=== PATIENT | female | born 2000 | race Caucasian/White ===

== ENCOUNTER 2019-02-09 | Inpatient (IN) | payer OTHER ==
[2019-02-09 00:50] LABS: BASO % 0.3 % (0-2.0); EOS % 0.1 % (0-4.5); HEMATOCRIT 39.3 % (32.4-45.2); HEMOGLOBIN 13.6 GM/dL (10.7-15.3); LYMPH % 20.3 % (8-40); MCHC 34.6 g/dl (32.0-36.0); MEAN CELL VOLUME 83.6 fl (80-96); MEAN PLT VOLUME 10.8 fl (7.5-11.1); NEUT % 74.3 % (42.8-82.8); PLATELET COUNT 196 K/MM3 (134-434); RDW 13.8 % (11.6-15.6); WHITE BLOOD COUNT 10.1 K/mm3 (4.0-10.0)
[2019-02-09 01:07] LABS: INR 0.97 (0.83-1.09); PROTHROMBIN TIME (PATIENT) 11.5 SEC (9.7-13.0)
[2019-02-09 01:10] LABS: ACTIVATED PTT 28.2 SECONDS (25.2-36.5)
[2019-02-09 01:11] LABS: BLOOD UREA NITROGEN 5.8 mg/dL (7-18); CALCIUM 9.5 mg/dL (8.5-10.1); CREATININE 0.4 mg/dL (0.55-1.3); POTASSIUM 3.9 mmol/L (3.5-5.1)
[2019-02-09] MEDS ORDERED: DEXTROSE 5%-LACTATED RINGERS 500 ML IV ONE ×2 (03:00→04:00)
[2019-02-09] MEDS ORDERED: BUTORPHANOL TARTRATE 1 MG/ML VIAL IVPB ONE (04:21)
[2019-02-09] MEDS ORDERED: PROMETHAZINE HCL 25 MG/1 ML VIAL IVPUSH ONE (04:21)
--- NOTE | 2019-02-09 04:27 | HP ---
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: No: Alzheimer's, CVA, Dementia, Migraine, Multiple Sclerosis, Peripheral Neuropathy, Parkinson's, Seizure, Syncope, TIA, Vertigo, Other Cardiovascular: No: AFIB, Aneurysm, Aortic Insufficiency, Aortic Stenosis, CAD, CHF, Deep Vein Thrombosis, HTN, Hyperlipdemia, NH, Mitral Insufficiency, Mitral Stenosis, Murmur, Pulmonary Hypertension, Other Pulmonary: No: Asthma, Bronchitis, Cancer, COPD, O2 Dependent, Pneumonia, Previously Intubated, Pulmonary Embolus, Pulmonary Fibrosis, Sleep Apnea, Other Gastrointestinal: No: Ascites, Cancer, Constipation, Crohn's Disease, Diverticulitis, Diverticulosis, Esophageal Varices, Gastritis, GERD, GI Bleed, Hemorrhoids, Hiatal Hernia, Inflamatory Bowel Disease, Irritable Bowel Disease, Pancreatitis, Peptic Ulcer Disease, Ulcerative Colitis, Other Hepatobiliary: No: Cirrhosis, Cholelithiasis, Cholecystitis, Choledocholithiasis , Hepatitis A, Hepatitis B, Hepatitis C, Other Renal/: No: Renal Failure, Renal Inusuff, BPH, Cancer, Hematuria, Hemodialysis , Neurogenic Bladder, Renal Calculi, UTI, Other ...: 1 ...Para: 0 ...Term: 0 ...: 0 ...Spon : 0 ...Induced : 0 ...LMP: 06/08/18 ...EDC by Sono: 02/13/19 Heme/Onc: No: Anemia, B12 Deficiency, Bleeding Disorder, Cancer, Current Chemotherapy, Current Radiation Therapy, Hemochromatosis, Hypercoaguable State, Myeloproliferative Synd, Sickle Cell Disease, Sickle Cell Trait, Thrombocytopenia, Other Psych: No: Addictions, Anxiety, Bipolar, Depression, Panic, Psychosis, Schizophrenia, Other Musculoskeletal: No: Bursitis, Chronic low back pain, Hemiparesis, Hemiplegia, Osteoarthritis, Paraplegia, Other - Past Surgical History Past Surgical History: Yes: None Hx Myomectomy: No Hx Transabdominal Cerclage: No - Smoking History Smoking history: Never smoked - Alcohol/Substance Use Hx Alcohol Use: No History of Substance Use: reports: None - Social History Do you think of yourself as: Straight/Heterosexual ADL: Independent History of Recent Travel: No Home Medications - Allergies Allergies/Adverse Reactions: Allergies Allergy/AdvReac Type Severity Reaction Status Date / Time No Known Allergies Allergy Verified 02/09/19 00:41 - Home Medications Home Medications: Ambulatory Orders Ferrous Sulfate [Iron] 325 mg PO DAILY 02/08/19 Pnv No.95/Ferrous Fum/Folic AC [ Formula] 1 each PO DAILY 02/08/19 Physical Exam - Maternity Vital Signs: Vital Signs Temperature 98.7 F 02/09/19 02:00 Pulse Rate 85 02/09/19 02:00 Respiratory Rate 20 02/09/19 02:00 Blood Pressure 111/72 02/09/19 02:00 O2 Sat by Pulse Oximetry (%) Constitutional: Yes: Well Nourished, No Distress, Calm - Abdominal Exam/OB Number of Fetuses: Single Presentation: Vertex Contractions: Yes Regularity: Irregular Intensity: Mild/Mod Monitor Mode: External Accelerations: Non-Uniform Decelerations: Late - Vaginal Exam/OB Vaginal Bleediing: No Speculum Exam: No Dilatation (cm): 5 Amniotic Membrane Status: Ruptured Nitrazine Test: Positive Amniotic Fluid: Yes: Clear Presentation: Vertex/Position Station: -3 - Labs Lab Results: CBC, BMP 02/09/19 00:30 02/09/19 00:30 Assessment/Plan 18yo @ 39.2 weeks here with contractions and then SROM 12AM Admit to L&D NPO Stadol/epidural Continuous EFM Anticipate Kenneth Espinoza MD
[2019-02-09] MEDS ORDERED: DEXTROSE 5%-LACTATED RINGERS 1,000 ML IV SCH (04:30)
[2019-02-09] MEDS ORDERED: ELECTROLYTE-148 SOLN 1,000 ML IV SCH (04:30)
[2019-02-09 04:31] VITALS: BMI 23.4
--- NOTE | 2019-02-09 06:47 | PN ---
Progress Note, Labor Vaginal Exam #1 Labor Exam Date: 02/09/19 Heart Rate (range): Cat I Dilatation: 5 Effacement (%): 90 Amniotic Membrane Status: Ruptured Presentation: Vertex/Position Station: -2 Remarks: Doing well. No significant cervical change. Comfortable s/p stadol Contractions infrequent now Start pitocin Anticipate JOSE M Espinoza MD
[2019-02-09] MEDS ORDERED: OXYTOCIN 30 UNITS in 0.9% NS 30 UNIT/500 ML INFUS.BAG IVPB SCH ×2 (07:00→07:15)
[2019-02-09] MEDS ORDERED: OXYTOCIN 30 UNITS in 0.9% NS 30 UNIT/500 ML INFUS.BAG IVPB ONE (07:50)
[2019-02-09 09:10] LABS: POC NITRAZINE NEG
[2019-02-09] MEDS ORDERED: FENTANYL/BUPIVACAINE/NS/PF - PCEA - 50 ML DISP.SYRIN EP ONE (09:41)
--- NOTE | 2019-02-09 10:16 | PN ---
Progress Note (short form) - Note Progress Note: 18 yrs 39.2 weeks , admitted in labor due to srom since mid night by Dr Espinoza .Onset LP since Chart reviewed . GBS neg she received stadol 2 mg + phenrgan 25 mg at 4.40 AM Pitocin was started at 7.00AM & d/myra at 8.15 AM due to cat -2 tracing o/e 9.25 AM FHR 155-110, cat-2 , uc 3 min vag ex : 5cm edematous cx, vx 0/+1 station Plan epidural Selected Entries 02/09/19 08:00 Temperature 98.9 F Pulse Rate 82 Blood Pressure 112/80 Laboratory Tests 02/09/19 02/09/19 02/09/19 00:30 00:30 00:30 WBC 10.1 H Hgb 13.6 Hct 39.3 Plt Count 196 PT with INR 11.50 INR 0.97 PTT (Actin FS) 28.2 Sodium 138 Potassium 3.9 Chloride 104 Carbon Dioxide 24 BUN 5.8 L Creatinine 0.4 L Est GFR (CKD-EPI)AfAm 173.78 Est GFR (CKD-EPI)NonAf 149.94 Random Glucose 81 Calcium 9.5 Laboratory Tests 02/09/19 06:50 Blood Type B POSITIVE 10.30 AM : epidural completed at 10.05 AM fhr still shows variable decel 120-150 bpm , UC / 2-3 min vag ex 5-6 /edematous /vx 0/+[address] trial odf labor 11.40 AM : deep variable decels down to 70-80 bpm , base line 150-160 , cat-2 uc q2-3 min strong epidural labor analgesia ineffective pelvic : 6 cm edematous cx , vx 0 station, caput Plan : delivery by primary lftc/s Selected Entries 02/09/19 11:30 Pulse Rate 87 Blood Pressure 141/89 10.00AM temp 99.1 11.45 AM Temp 99.4
[2019-02-09] MEDS ORDERED: NALOXONE HCL 0.4 MG/ML VIAL IVPUSH PRN (10:24)
[2019-02-09] MEDS ORDERED: FENTANYL/BUPIVACAINE/NS/PF - PCEA - 50 ML DISP.SYRIN EP SCH ×2 (10:30→11:00)
[2019-02-09] MEDS ORDERED: CITRIC ACID/SODIUM CITRATE 30 ML UNIT-DOSE CUP PO ONE (11:32)
[2019-02-09] MEDS ORDERED: ONDANSETRON 4 MG/2 ML VIAL IVPUSH PRN (12:23)
[2019-02-09] MEDS ORDERED: morphine SULFATE/PF 0.5 MG/ML (2cc Syringe - QUVA) SPIN ONE (12:23)
[2019-02-09] MEDS ORDERED: OXYTOCIN 20 UNITS in 0.9% NS 20 UNIT/1,000 ML INFUS.BAG IV ONE ×2 (12:35→15:22)
[2019-02-09] MEDS ORDERED: ePHEDrine SULFATE 50 MG/1 ML AMPULE ONE (12:39)
[2019-02-09] MEDS ORDERED: MIDAZOLAM HCL 2 MG/2 ML SINGLE DOSE VIAL ONE (13:23)
[2019-02-09] MEDS ORDERED: IBUPROFEN 600 MG TABLET (FP) PO PRN (13:52)
[2019-02-09] MEDS ORDERED: SENNOSIDES/DOCUSATE COMBO (SENNA PLUS) TABLET (UD) PO PRN (13:52)
[2019-02-09] MEDS ORDERED: ACETAMINOPHEN 325 MG TABLET (FP) PO PRN (13:52)
[2019-02-09] MEDS ORDERED: METHYLERGONOVINE MALEATE 0.2 MG/1 ML AMP IM PRN (13:52)
--- NOTE | 2019-02-09 14:06 | OP ---
Operative Note - Note: Operative Date: 02/09/19 Pre-Operative Diagnosis: 39.2 weeks, Non Reassuring FHR, FTP Operation: Primary LFTC/Section Findings: 1 .01 PM , baby Girl, Vx, OP position , apgar9/9, wt 5'12" , Both tubes & ovaries normal Dr Palma in OR Surgeon: Renay Wiley Salvage Engineer: Gregor Vasques Anesthesiologist/CHECK OUT CASHIER: Lesa Matta MD Anesthesia: Spinal Specimens Removed: cord segment for cord gas. cord blood. placenta Estimated Blood Loss (mls): 700 Drains, Volume Out (mls): 450 (hendricks output shakeel color ) Fluid Volume Replaced (mls): 900 (ancef 2 gm ivpb )
--- NOTE | 2019-02-09 14:20 | PN ---
Delivery - Delivery Section: Primary, Low Flap Transverse (Indication 39.2 weeks, NonReassuring Fhr, FTP) Type of Anesthesia: Epidural, Spinal EBL (cc): 700 (hendricks output 450 ml shakeel color ) Delivery, Single - Stages of Labor Date 1st Stage Initiatied: 02/08/19 Time 1st Stage Initiated: 23:00 Date of Delivery: 02/09/19 Time of Delivery: 13:01 Time Placenta Delivered: 13:02 Placenta: Yes: Manual Removal, Uterine Exploration - Condition of Quality Control Lab Technician/Diamond Assorter Present: Yes Name: Juan Kowalski Gender: Female Weight: 5 lb 12 oz Position: OP Total Hours ROM (Hrs/Mins): 9 hours 22 minutes - 1 Minute Total Score: 9 5 Minutes Total Score: 9 - Feeding Plan Initial Plan: Elected not to breastfeed exclusively throughout hospitalization Remarks - Remarks Remarks: 18 yrs , 39.2 weeks, gbs neg pnc at 2, [facility] pt received stadol + phenrgan & epidural for labor analgesia intraop course uneventful
[2019-02-09] MEDS: ELECTROLYTE-148 SOLN 1,000 ML IV SCH (15:01)
[2019-02-09] MEDS ORDERED: OXYTOCIN 10 UNITS/ML VIAL ONE (15:03)
--- NOTE | 2019-02-09 16:21 | OP ---
DATE OF OPERATION: 02/09/2019 PREOPERATIVE DIAGNOSIS: 39.2 weeks, nonreasurring heart rate, and failure to progress. OPERATION: Primary low flap transverse section. SURGEON: Renay Wiley MD KENNEL STAFF MEMBER SURGEON: JARROD Price ANESTHESIOLOGIST: Lesa Matta MD THREADING MACHINE SETTER: Minerva Martinez ANESTHESIA: Spinal. FINDINGS: This 18-year-old 1, para 0 admitted in labor. She had a rupture of membranes for 9 hours. She was having deep variable decelerations going to 70-80 beats per minute. She had no pain relief after the epidural also. She was dilated 6 cm for more than 3 hours, and cervix had become edematous. It was decided to deliver the patient by section. Direct OP position is noted during the section. Baby girl. Apgars were 9, 9, weight was 5 pounds 12 ounces. DESCRIPTION OF PROCEDURE: Abdomen was shaved, prepped. Gusman catheter was placed already. Epidural catheter was removed. SCD stockings put in place. Patient was taken to the operating room table. Spinal anesthesia was given. Patient was placed in supine position. Abdomen was painted and draped in the usual manner. Pfannenstiel incision was made in skin and subcutaneous tissue. Anterior rectus sheath was incised transversely. Bleeding points were clamped and cauterized. Rectus muscle was from the rectus sheath. Parietal peritoneum was opened vertically. Lower flap bladder peritoneum was incised transversely. Lower uterine segment was incised transversely. Amniotic was clear. Baby was delivered from OP position at 1:01 PM, baby girl. Apgars were 9, 9. Cord was clamped, and cord segment was sent for the cord blood gas, and cord blood was collected. Placenta was removed completely with the membranes. Uterine incision was closed in 2 layers, 1st layer was a continuous locking with a Biosyn single suture, 2nd layer was a continuous, intermittent locking with a Biosyn single suture. Hemostasis was checked. Uterine incision then bladder peritoneum was closed with Biosyn single suture. Both tubes and ovaries were normal. Irrigation was done, and the sponge, instrument, needle count was correct. Closure of the abdomen was done. Parietal peritoneum was closed with a Vicryl 0 suture. Muscles were approximated together with a Vicryl 0 suture with intermittent sutures. Anterior rectus sheath was closed with a Vicryl 0 continuous suture. Before closure of the anterior rectus sheath underneath the flaps, hemostasis was checked. Subcutaneous tissue hemostasis was checked. Intermittent sutures were taken to subcutaneous tissue. Skin was approximated with zenobia, and pressure dressing was given. Blood clots were removed from the vagina. Patient tolerated procedure well and were transferred to the recovery room in stable condition. Estimated blood loss was 700 mL. Intraoperative urine output was 450 mL, and she received 2 g of IV Ancef prior to the incision. She has an IV solution, about 900 mL received. Promise [id number] MTDD
[2019-02-09] MEDS: IBUPROFEN 800 MG/8 ML IJ IVPB PRN (17:40)
[2019-02-09] MEDS ORDERED: CEFAZOLIN 1 GM in DEXTROSE 5%-WATER - 50 ML IVPB SCH (18:00)
[2019-02-09] MEDS ORDERED: CEFAZOLIN 1 GM/D5W 1 GM/50 ML BAG IVPB SCH (18:38)
[2019-02-09] MEDS: CEFAZOLIN 1 GM/D5W 1 GM/50 ML BAG IVPB SCH (18:49)
[2019-02-10] MEDS: IBUPROFEN 800 MG/8 ML IJ IVPB PRN ×3 (00:28→14:45)
[2019-02-10] MEDS: CEFAZOLIN 1 GM/D5W 1 GM/50 ML BAG IVPB SCH ×3 (02:31→17:15)
[2019-02-10] MEDS ORDERED: oxyCODONE HCL 5 MG TABLET PO PRN (06:00)
--- NOTE | 2019-02-10 07:09 | PN ---
Progress Note (short form) - Note Progress Note: pod 1 s/p c/s has mild low abdominal cramps CBC, BMP 02/09/19 00:30 02/09/19 00:30 Last Vital Signs Temp Pulse Resp BP Pulse Ox 97.5 F L 81 20 103/51 L 99 02/10/19 06:00 02/10/19 06:00 02/10/19 06:00 02/10/19 06:00 02/09/19 14:35 abdomen soft, no distension, no cva uterus firm lochia mild no calf tenderness plan ambulate, cbc advance diet pain management
[2019-02-10 07:55] LABS: BASO % 0.2 % (0-2.0); EOS % 0.1 % (0-4.5); HEMATOCRIT 34.6 % (32.4-45.2); HEMOGLOBIN 11.8 GM/dL (10.7-15.3); LYMPH % 13.6 % (8-40); MCH 29.2 pg (25.7-33.7); MCHC 34.3 g/dl (32.0-36.0); MEAN CELL VOLUME 85.3 fl (80-96); MEAN PLT VOLUME 10.3 fl (7.5-11.1); MONO % 6.1 % (3.8-10.2); PLATELET COUNT 165 K/MM3 (134-434); RBC 4.05 M/mm3 (3.60-5.2); WHITE BLOOD COUNT 17.1 K/mm3 (4.0-10.0)
[2019-02-10] MEDS ORDERED: ENOXAPARIN NA (PORCINE) 40 MG/0.4 ML DISP.SYRIN SQ SCH (10:00)
--- NOTE | 2019-02-10 10:00 | PN ---
Progress Note (short form) - Note Progress Note: Post op day#1.S/P C Section under spinal anesthesia with duramorph uneventful.Patient stable and has little pain for which she is on medication.No any anesthesia related problem.Patient DC from the anesthesia care.
[2019-02-10] MEDS: PRENATAL VITAMINS W/ FOLIC ACID TABLET (FP) PO SCH (10:05)
[2019-02-10] MEDS ORDERED: BISACODYL 10 MG SUPP.RECT RC PRN (13:52)
[2019-02-10] MEDS: IBUPROFEN 100 MG/5 ML UNIT DOSE CUPS PO PRN ×2 (15:38→23:34)
[2019-02-10] MEDS: ACETAMINOPHEN 650 MG/20.3 ML ORAL SOLUTION (CUPS) PO PRN ×2 (15:38→23:34)
[2019-02-10] MEDS: SIMETHICONE 80 MG TAB.CHEW (FP) PO PRN (15:39)
[2019-02-10] MEDS: FERROUS SO4 325 MG TABLET (FP) PO SCH (21:22)
[2019-02-11] MEDS: CEFAZOLIN 1 GM/D5W 1 GM/50 ML BAG IVPB SCH (04:16)
--- NOTE | 2019-02-11 06:31 | PN ---
Post Progress Note - Subjective Subjective: c/o pain less today, 2-4/10 yesterday max pain 8/10 voiding without difficulty Post Day: 2 Type of Delivery: Primary C/S Vital Signs: Vital Signs Temperature 97.1 F L 02/10/19 21:21 Pulse Rate 78 02/10/19 21:21 Respiratory Rate 18 02/10/19 21:21 Blood Pressure 104/50 L 02/10/19 21:21 O2 Sat by Pulse Oximetry (%) 99 02/09/19 14:35 Breast Exam: Yes: Soft, Other (BF & bottle feeding ). No: Engorged Uterus: Yes: Fundus Firm, Fundus below umbilicus Abdomen/GI: Yes: Abdomen soft, Passing flatus, Tolerating PO (diet ). No: Abdominal Distention, Tender Lochia: Yes: Rubra Lochia, amount: Moderate Extremities: Yes: Calves non-tender Perineum: Yes: Intact Activity: Ambulating - Labs Labs: CBC WBC 17.1 K/mm3 (4.0-10.0) H 02/10/19 07:17 RBC 4.05 M/mm3 (3.60-5.2) 02/10/19 07:17 Hgb 11.8 GM/dL (10.7-15.3) 02/10/19 07:17 Hct 34.6 % (32.4-45.2) 02/10/19 07:17 MCV 85.3 fl (80-96) 02/10/19 07:17 MCH 29.2 pg (25.7-33.7) 02/10/19 07:17 MCHC 34.3 g/dl (32.0-36.0) 02/10/19 07:17 RDW 14.0 % (11.6-15.6) 02/10/19 07:17 Plt Count 165 K/MM3 (134-434) 02/10/19 07:17 MPV 10.3 fl (7.5-11.1) 02/10/19 07:17 Absolute Neuts (auto) 13.6 K/mm3 (1.5-8.0) H 02/10/19 07:17 Neutrophils % 80.0 % (42.8-82.8) 02/10/19 07:17 Lymphocytes % 13.6 % (8-40) D 02/10/19 07:17 Monocytes % 6.1 % (3.8-10.2) 02/10/19 07:17 Eosinophils % 0.1 % (0-4.5) 02/10/19 07:17 Basophils % 0.2 % (0-2.0) 02/10/19 07:17 Nucleated RBC % 0 % (0-0) 02/10/19 07:17 Problem List - Problems (1) with 39 completed weeks gestation Code(s): Z3A.39 - 39 WEEKS GESTATION OF (2) Failure to progress in labor Code(s): O62.2 - OTHER UTERINE INERTIA (3) Non-reassuring heart rate, delivered, current hospitalization Code(s): O76 - ABNLT IN HEART RATE AND RHYTHM COMP LABOR AND DELIVERY (4) delivery due to maternal disorder, delivered, current hospitalization Code(s): O99.89 - OTH DISEASES AND CONDITIONS COMPL PREG/CHLDBRTH (5) Status post section routine follow-up Code(s): Z39.2 - ENCOUNTER FOR ROUTINE FOLLOW-UP; Z98.891 - HISTORY OF UTERINE SCAR FROM PREVIOUS SURGERY Assessment/Plan plan ct po care encourage po fluids, ambulation , deep breathing ex
[2019-02-11] MEDS: FERROUS SO4 325 MG TABLET (FP) PO SCH ×3 (08:05→17:32)
[2019-02-11] MEDS: ACETAMINOPHEN 650 MG/20.3 ML ORAL SOLUTION (CUPS) PO PRN ×3 (08:09→17:32)
[2019-02-11] MEDS: IBUPROFEN 100 MG/5 ML UNIT DOSE CUPS PO PRN ×3 (08:38→17:33)
[2019-02-11] MEDS: PRENATAL VITAMINS W/ FOLIC ACID TABLET (FP) PO SCH ×2 (10:00)
[2019-02-11] MEDS: ELECTROLYTE-148 SOLN 1,000 ML IV SCH (13:47)
[2019-02-12] MEDS: IBUPROFEN 100 MG/5 ML UNIT DOSE CUPS PO PRN ×3 (00:02→20:48)
[2019-02-12] MEDS: ACETAMINOPHEN 650 MG/20.3 ML ORAL SOLUTION (CUPS) PO PRN ×3 (00:03→20:48)
[2019-02-12] MEDS: SIMETHICONE 80 MG TAB.CHEW (FP) PO PRN ×3 (00:04→20:48)
[2019-02-12] MEDS: FERROUS SO4 325 MG TABLET (FP) PO SCH (08:08)
[2019-02-12 08:09] LABS: BASO % 0.2 % (0-2.0); EOS % 1.1 % (0-4.5); HEMATOCRIT 32.5 % (32.4-45.2); HEMOGLOBIN 10.9 GM/dL (10.7-15.3); LYMPH % 36.6 % (8-40); MCH 28.6 pg (25.7-33.7); MCHC 33.6 g/dl (32.0-36.0); MEAN CELL VOLUME 85.1 fl (80-96); MEAN PLT VOLUME 9.9 fl (7.5-11.1); MONO % 7.4 % (3.8-10.2); NEUT % 54.7 % (42.8-82.8); PLATELET COUNT 202 K/MM3 (134-434); RBC 3.82 M/mm3 (3.60-5.2); RDW 13.9 % (11.6-15.6); WHITE BLOOD COUNT 7.3 K/mm3 (4.0-10.0)
--- NOTE | 2019-02-12 08:24 | PN ---
Post Progress Note - Subjective Subjective: no c/o pain scale 06/26 Post Day: 3 Type of Delivery: Primary C/S Vital Signs: Vital Signs Temperature 98.2 F 02/11/19 09:29 Pulse Rate 72 02/11/19 09:29 Respiratory Rate 18 02/11/19 09:29 Blood Pressure 111/72 02/11/19 09:29 O2 Sat by Pulse Oximetry (%) 99 02/09/19 14:35 Breast Exam: Yes: Soft, Other (BF). No: Engorged Uterus: Yes: Fundus Firm, Fundus below umbilicus, Non-tender Incision: Yes: [place] intact. No: Redness, Oozing Abdomen/GI: Yes: Abdomen soft, Passing flatus (BM done ), Tolerating PO (diet). No: Abdominal Distention, Tender Lochia: Yes: Rubra Lochia, amount: Moderate Extremities: Yes: Calves non-tender Perineum: Yes: Intact Activity: Ambulating - Labs Labs: CBC WBC 17.1 K/mm3 (4.0-10.0) H 02/10/19 07:17 RBC 4.05 M/mm3 (3.60-5.2) 02/10/19 07:17 Hgb 11.8 GM/dL (10.7-15.3) 02/10/19 07:17 Hct 34.6 % (32.4-45.2) 02/10/19 07:17 MCV 85.3 fl (80-96) 02/10/19 07:17 MCH 29.2 pg (25.7-33.7) 02/10/19 07:17 MCHC 34.3 g/dl (32.0-36.0) 02/10/19 07:17 RDW 14.0 % (11.6-15.6) 02/10/19 07:17 Plt Count 165 K/MM3 (134-434) 02/10/19 07:17 MPV 10.3 fl (7.5-11.1) 02/10/19 07:17 Absolute Neuts (auto) 13.6 K/mm3 (1.5-8.0) H 02/10/19 07:17 Neutrophils % 80.0 % (42.8-82.8) 02/10/19 07:17 Lymphocytes % 13.6 % (8-40) D 02/10/19 07:17 Monocytes % 6.1 % (3.8-10.2) 02/10/19 07:17 Eosinophils % 0.1 % (0-4.5) 02/10/19 07:17 Basophils % 0.2 % (0-2.0) 02/10/19 07:17 Nucleated RBC % 0 % (0-0) 02/10/19 07:17 Problem List - Problems (1) with 39 completed weeks gestation Code(s): Z3A.39 - 39 WEEKS GESTATION OF (2) Failure to progress in labor Code(s): O62.2 - OTHER UTERINE INERTIA (3) Non-reassuring heart rate, delivered, current hospitalization Code(s): O76 - ABNLT IN HEART RATE AND RHYTHM COMP LABOR AND DELIVERY (4) delivery due to maternal disorder, delivered, current hospitalization Code(s): O99.89 - OTH DISEASES AND CONDITIONS COMPL PREG/CHLDBRTH (5) Status post section routine follow-up Code(s): Z39.2 - ENCOUNTER FOR ROUTINE FOLLOW-UP; Z98.891 - HISTORY OF UTERINE SCAR FROM PREVIOUS SURGERY Assessment/Plan stable plan ct po care discharge tomorrow.
[2019-02-12] MEDS: FERROUS SO4 300 MG/5 ML ORAL SOLN UNIT DOSE CUPS PO SCH ×2 (09:25→23:30)
[2019-02-12] MEDS: MULTIVIT-MINERALS ORAL LIQUID PO SCH (09:25)
[2019-02-13] MEDS: ACETAMINOPHEN 650 MG/20.3 ML ORAL SOLUTION (CUPS) PO PRN (08:33)
[2019-02-13] MEDS: IBUPROFEN 100 MG/5 ML UNIT DOSE CUPS PO PRN (08:33)
[2019-02-13] MEDS: SIMETHICONE 80 MG TAB.CHEW (FP) PO PRN (08:33)
--- NOTE | 2019-02-13 08:33 | DS ---
Physical Exam-DIRECTOR OF CARDIOLOGY Vital Signs: Vital Signs Temperature 98 F 02/12/19 22:00 Pulse Rate 72 02/12/19 22:00 Respiratory Rate 18 02/12/19 22:00 Blood Pressure 122/76 02/12/19 22:00 O2 Sat by Pulse Oximetry (%) 99 02/09/19 14:35 Constitutional: Yes: Well Nourished, Other (pain nscale 5/10) Eyes: Yes: WNL HENT: Yes: WNL, Normocephalic Neck: Yes: WNL Cardiovascular: Yes: WNL Respiratory: Yes: WNL Gastrointestinal: Yes: WNL, Normal Bowel Sounds, Soft, Other (bm done). No: Distention ...Rectal Exam: Yes: WNL Renal/: Yes: WNL ....Post : Yes: Uterus firm, Uterus non-tender, Slight lochia rubra. No: Uterus tender Breast(s): Yes: WNL, Right (breast engorged ,need to BF) Musculoskeletal: Yes: WNL Extremities: Yes: WNL. No: Calf Tenderness Edema: LLE: 1+, RLE: 1+ Integumentary: Yes: Tattoos Wound/Incision: Yes: Steri Strips, Open to air, [place] Removed. No: Draining, Reddened, Bleeding Neurological: Yes: WNL, Alert, Oriented, Unresponsive Psychiatric: Yes: WNL, Alert, Oriented Labs: CBC, BMP 02/12/19 07:36 02/09/19 00:30 Delivery - Delivery Section: Primary, Low Flap Transverse (Indication 39.2 weeks, NonReassuring Fhr, FTP) Type of Anesthesia: Spinal EBL (cc): 700 (hendricks output 450 ml shakeel color ) Delivery, Single - Stages of Labor Date 1st Stage Initiatied: 02/08/19 Time 1st Stage Initiated: 23:00 Date of Delivery: 02/09/19 Time of Delivery: 13:01 Time Placenta Delivered: 13:02 Placenta: Yes: Manual Removal, Uterine Exploration - Condition of Infant Review Engineer/An/Syq 13 Nav/C2 Operator Present: Yes Name: Juan Kowalski Infant Gender: Female Weight: 5 lb 12 oz Position: OP Total Hours ROM (Hrs/Mins): 9 hours 22 minutes - 1 Minute Total Score: 9 5 Minutes Total Score: 9 - Feeding Plan Initial Plan: Elected not to breastfeed exclusively throughout hospitalization Remarks - Remarks Remarks: 18 yrs , 39.2 weeks, gbs neg pnc at 2, [facility] pt received stadol + phenrgan & epidural for labor analgesia intraop course uneventful po course uneventful discharge today Discharge Summary Problems reviewed: Yes Reason For Visit: LABOR Current Active Problems delivery due to maternal disorder, delivered, current hospitalization ( Acute) Failure to progress in labor (Acute) Non-reassuring heart rate, delivered, current hospitalization (Acute) with 39 completed weeks gestation (Acute) Status post section routine follow-up (Acute) Procedures: Principal: primary LFTC/section Hospital Course: uneventful Health Concerns: Post Op wound care Plan of Treatment: as directed Goals: maternal & well being Condition: Stable - Instructions Diet, Activity, Other Instructions: Post Instructions DIET: Continue good diet high in protein, calcium, and iron rich foods. Drink at least eight (8) glasses of water daily in addition to other fluids. ct Regular diet MEDICATIONS: Continue vitamins and iron as previously directed. Motrin and Tylenol may be taken for minor discomfort. ACTIVITY: Mild to moderate exercise may be started in two (2) weeks. Take frequent rest periods. Resume normal activity after six (6) week check up. WOUND CARE OF OPERATIVE SITE: Continue use of perineal bottle until vaginal discharge stops. Keep area clean. Shower daily. Keep abdominal wound dry. Report any drainage or redness to physician. Tub baths, tampons and douches are not permitted for [address] _ Breast feeding & or Bottle feeding BREAST CARE: (For those that are not breast feeding): If engorgement occurs: Wear tight fitting bra. Take Tylenol or Motrin for pain. Apply cold packs (ice in bags to each breast ) FAMILY PLANNING: There are many control alternatives to pursue and they should be discussed at your first office visit. You may resume sexual activity after your six (6) week check up. (Remember, breast feeding is not a contraceptive) NEXT PHYSICIAN APPOINTMENT: Be certain to call for a one (1) week appointment, unless otherwise directed. for wound check Call Clinic or got to Emergency Dept if you have any of the following: Heavy vaginal bleeding Painful urination Leg pain Unusual odor noted to vaginal bleeding High fever Red streaking noted on breast Referrals: Renay Wiley MD [Staff Physician] - Disposition: HOME - Home Medications Comprehensive Discharge Medication List: Ambulatory Orders Ferrous Sulfate [Iron] 325 mg PO DAILY 02/08/19 Pnv No.95/Ferrous Fum/Folic AC [ Formula Tablet] 1 each PO DAILY Acetaminophen Oral Solution [Tylenol Oral Solution -] 650 mg PO Q4H PRN #1 bottle 02/12/19 Ferrous Sulfate [Feosol] 300 mg PO BID 30 Days #1 bottle 02/12/19 Ibuprofen Oral Suspension [Motrin Oral Suspension -] 600 mg PO Q4H PRN #1 bottle 02/12/19 Multivit-Minerals [Certavite-Antioxidant Liquid] 15 ml PO DAILY #1 bottle Prescription Drug Monitoring Program (I-STOP) results: I-STOP reviewed and no issues identified
[2019-02-13] MEDS: MULTIVIT-MINERALS ORAL LIQUID PO SCH (09:40)
[2019-02-13] MEDS: FERROUS SO4 300 MG/5 ML ORAL SOLN UNIT DOSE CUPS PO SCH (09:40)
[2019-02-13 09:50] VITALS: BP 128/81; PULSE 68; TEMP 97.8
--- NOTE | 2019-02-15 19:01 | PATH ---
Surgical Pathology Report Patient Name: QING PRETTY [facility]. Rec. #: [id number] /Age/Gender: 2000 (Age: 18) / F Account: [id number] Location: [facility] OBS/JDE DEVELOPER Taken: 02/09/2019 Received: 02/09/2019 Reported: 02/15/2019 Physicians: Renay Wiley M.D. Specimen(s) Received PLACENTA Clinical History [place], nonreassuring heart rate, failure to progress Final Diagnosis PLACENTA: THIRD TRIMESTER PLACENTA. TRIVASCULAR CORD. MEMBRANES WITH NO DIAGNOSTIC ABNORMALITIES. Electronically Signed Alysha Johnson M.D. Gross Description The specimen is received fresh labeled placenta and is a 402 gram, 14.5 x 12.5 x 3.0 cm. placenta with attached membranes and umbilical cord. The attached membranes are maguire, translucent with focal opacities and insert marginally. The umbilical cord measures 15 cm. in length and averages 0.8 cm. in diameter. The cord inserts eccentrically, 4 cm. to the nearest margin. No true knots or strictures are identified. Cut surface of the umbilical cord reveals 3 vessels. The surface is thomas blue with abundant fibrin deposition and appropriate caliber vessels. The maternal surface is red-brown with focal defects. Sectioning reveals red-brown, spongy parenchyma. No lesions are identified. Porcelain Finisher sections are submitted in three cassettes as follows: 1- membrane rolls and umbilical cord; 2-3- full thickness sections of placenta. 02/14/2019 saudi02/14/2019
== END 2019-02-13 13:15 | disposition home or self-care (01) | DRG 540 ==
LOC: JDEL → JLDR 03:40 → J3W 15:40
PROVIDERS: ADMIT Obstetrics & Gynecology; ATTEND Obstetrics & Gynecology
PROC: 10D00Z1 Extraction of Products of Conception, Low, Open Approach (ICD-10-PCS; principal; 2019-02-09)
DX: O76 Abnormality in fetal heart rate and rhythm complicating labor and delivery (principal); O62.2 Other uterine inertia; Z3A.39 39 weeks gestation of pregnancy; Z37.0 Single live birth
CPT/HCPCS: 36415; 36600; 80048; 82803; 83986-QW; 85025; 85610; 85730; 86593; 86850; 86900; 86901; 88307-TC

== ENCOUNTER 2022-08-19 22:41 | Emergency (ER) | payer OTHER ==
[2022-08-19 22:47] VITALS: BP 119/73; PULSE 73; RESP 18; TEMP 97.8; BMI 21.4
[2022-08-19] MEDS ORDERED: SODIUM CHLORIDE 1,000 ML IV STA (23:15)
[2022-08-19] MEDS ORDERED: METOCLOPRAMIDE HCL INJECTION 10 MG/2 ML VIAL IVPUSH ONE (23:15)
[2022-08-19] MEDS ORDERED: FAMOTIDINE 20 MG/50 ML IVPB 20 MG/50 ML MG IVPB ONE (23:15)
[2022-08-19] MEDS ORDERED: METOCLOPRAMIDE HCL INJECTION 10 MG/2 ML VIAL ONE (23:28)
[2022-08-19] MEDS ORDERED: FAMOTIDINE 10 MG/ML VIAL IVPB ONE (23:29)
[2022-08-19 23:30] LABS: BASO % 0.6 % (0-2.0); EOS % 1.1 % (0-4.5); HEMATOCRIT 40.8 % (32.4-45.2); HEMOGLOBIN 14.2 GM/dL (10.7-15.3); MCH 27.7 pg (25.7-33.7); MCHC 34.8 g/dl (32.0-36.0); MEAN CELL VOLUME 79.6 fl (80-96); MEAN PLT VOLUME 8.4 fl (7.5-11.1); MONO % 5.4 % (3.8-10.2); NEUT % 33.9 % (42.8-82.8); PLATELET COUNT 282 10^3/uL (134-434); RBC 5.13 M/mm3 (3.60-5.2); RDW 13.7 % (11.6-15.6); WHITE BLOOD COUNT 6.9 K/mm3 (4.0-10.0)
[2022-08-19 23:33] LABS: HCG,QUALITATIVE URINE Negative
[2022-08-19 23:57] LABS: POTASSIUM 3.8 mmol/L (3.5-5.1)
[2022-08-19 23:59] LABS: CALCIUM 10.3 mg/dL (8.5-10.1)
[2022-08-20 00:01] LABS: ALBUMIN 4.3 g/dl (3.4-5.0); BLOOD UREA NITROGEN 10.5 mg/dL (7-18)
[2022-08-20 00:02] LABS: CREATININE 0.6 mg/dL (0.55-1.3)
[2022-08-20 00:04] LABS: BILIRUBIN,TOTAL 0.6 mg/dL (0.2-1); TOT PROT 8.2 g/dl (6.4-8.2)
[2022-08-20 00:13] LABS: EPI CELLS 0 /uL (0-25.1); HYALINE CASTS 0 /uL (0-3.1); PH,URINE 5.5 (5.0-8.0); URINE APPEARANCE CLOUDY; URINE BACTERIA 0 /uL (0-1359); URINE BILIRUBIN NEGATIVE (NEGATIVE); URINE COLOR YELLOW; URINE GLUCOSE (UA) NEGATIVE (NEGATIVE); URINE KETONE TRACE (NEGATIVE); URINE LEUK ESTERASE 2+ (NEGATIVE); URINE NITRITE NEGATIVE (NEGATIVE); URINE PROTEIN NEGATIVE (NEGATIVE); URINE RBC 5 /uL (0-23.9); URINE UROBILINOGEN 0.2 mg/dL (0.2-1.0); URINE WBC 1 /uL (0-25.8)
[2022-08-20] MEDS ORDERED: ONDANSETRON 4 MG/2 ML VIAL IVPUSH ONE (00:30)
[2022-08-20] MEDS ORDERED: ONDANSETRON 4 MG/2 ML VIAL ONE (00:32)
== END 2022-08-20 01:27 | disposition home or self-care (01) ==
LOC: JER 22:41
PROC: 3E033GC Introduction of Other Therapeutic Substance into Peripheral Vein, Percutaneous Approach (ICD-10-PCS; principal; 2022-08-19)
PROC: 3E033GC Introduction of Other Therapeutic Substance into Peripheral Vein, Percutaneous Approach (ICD-10-PCS; 2022-08-19)
PROC: 3E033GC Introduction of Other Therapeutic Substance into Peripheral Vein, Percutaneous Approach (ICD-10-PCS; 2022-08-20)
DX: R19.7 Diarrhea, unspecified (principal); R11.2 Nausea with vomiting, unspecified; R10.13 Epigastric pain; R10.12 Left upper quadrant pain; R50.9 Fever, unspecified; R07.9 Chest pain, unspecified; R06.02 Shortness of breath
CPT/HCPCS: 36415; 76705-TC; 80053; 81003; 83690; 84703; 85025; 87086; 87186; 99284-25